=== PATIENT | female | born 1995 | race Caucasian/White ===

== ENCOUNTER 2023-06-07 17:26 | Emergency (ER) | payer MEDICAID, OTHER ==
[~2023-06-07] VITALS: Ht 160 cm; Wt 61.0 kg
[2023-06-07 17:30] VITALS: BP 120/79; PULSE 83; RESP 20; TEMP 98.4; O2SAT 100
== END 2023-06-07 18:50 | disposition home or self-care (01) ==
LOC: ER 17:26
DX: M94.0 Chondrocostal junction syndrome [Tietze] (principal); R07.89 Other chest pain; Z98.890 Other specified postprocedural states
CPT/HCPCS: 71045; 93005; 99283